=== PATIENT | male | born 1985 | race African-American/Black ===

== ENCOUNTER 2018-09-24 16:18 | Emergency (ER) | payer MEDICAID, OTHER ==
[~2018-09-24] VITALS: Ht 172.7 cm; Wt 136.5 kg
[2018-09-24 17:39] VITALS: BP 212/137
[2018-09-24] MEDS ORDERED: amLODIPine BESYLATE 5 MG TAB PO ONE (17:45)
[2018-09-24] MEDS ORDERED: cloNIDine HCL 0.1 MG TAB PO ONE (18:00)
[2018-09-24 18:26] LABS: Urine Bacteria NONE SEEN /hpf (None Seen); Urine Blood 2+ /uL (Negative); Urine Specific Gravity 1.017 (1.001-1.035); Urine WBC 1 /hpf (0 - 3)
[2018-09-24 18:52] LABS: Basophils # (auto) 0 uL; Basophils % (auto) 0.5 % (0.0-2.0); Eosinophils # (auto) 0.1 uL; Eosinophils % (auto) 0.8 % (0.0-7.0); Hematocrit 46.6 % (41.0-53.0); Hemoglobin 15.4 g/dL (13.5-17.5); Lymphocytes # (auto) 2.5 uL; Lymphocytes % (auto) 23.4 % (10.0-50.0); Mean Corpuscular Hemoglobin 29.3 pg (28.0-32.0); Mean Corpuscular Volume 88.8 fL (80.0-100.0); Monocytes # (auto) 1.1 uL; Monocytes % (auto) 10.3 % (0.0-12.0); Neutrophils # (auto) 6.9 uL; Nucleated Red Blood Cells % 0.1 %; Platelet Count (auto) 282 10^3/uL (140-450); Red Blood Cells 5.25 10^6/uL (4.5-5.90); Red Cell Distribution Width 14.6 % (11.8-14.3); White Blood Cell 10.5 10^3/uL (4.4-10.8)
[2018-09-24 19:02] LABS: Albumin 3.8 g/dL (3.4-5.0); BUN/Creatinine Ratio 8.5; Calcium 8.6 mg/dL (8.5-10.1); Magnesium 2.1 mg/dL (1.6-2.6)
[2018-09-24 19:05] LABS: Amylase 86 U/L (25-115); Lipase 119 U/L (73-393)
[2018-09-24 19:13] LABS: Bilirubin, Total 0.3 mg/dL (0.2-1.0); Total Protein 7.9 g/dL (6.4-8.2)
[2018-09-24 19:18] LABS: Potassium 2.9 mmol/L (3.5-5.1)
[2018-09-24] MEDS ORDERED: POTASSIUM CHL 20 Meq TABLET PO ONE (20:00)
[2018-09-24] MEDS ORDERED: hydrALAZINE HCL 20 MG/ML VL IV ONE (20:30)
[2018-09-24] MEDS ORDERED: TEMAZEPAM 15 MG CAP PO PRN (20:45)
[2018-09-24] MEDS ORDERED: MORPHINE SULF INJ 2 MG/ML SYRINGE 1ML IV PRN (20:45)
[2018-09-24] MEDS ORDERED: ACETAMINOPHEN 325 MG TAB PO PRN (20:45)
[2018-09-24] MEDS ORDERED: ONDANSETRON HCL 4 MG/2 ML VIAL IV PRN (20:45)
[2018-09-24] MEDS ORDERED: ENALAPRILAT 1.25 MG/ML-1ML VIAL IV ONE (20:45)
[2018-09-24] MEDS ORDERED: cloNIDine HCL 0.1 MG TAB PO PRN (20:45)
[2018-09-24] MEDS ORDERED: NITROGLYCERIN 0.4 MG SL TAB SL PRN (20:45)
[2018-09-24] MEDS ORDERED: FAMOTIDINE 20 MG TAB PO SCH (22:00)
[2018-09-25] MEDS ORDERED: LISINOPRIL 10 MG TAB PO SCH (10:00)
== END 2018-09-24 21:27 | disposition home or self-care (01) ==
LOC: ER 16:44
DX: I16.9 Hypertensive crisis, unspecified (principal); I10 Essential (primary) hypertension; E87.6 Hypokalemia; R79.89 Other specified abnormal findings of blood chemistry
CPT/HCPCS: 36415; 74176; 80053; 81001; 82150; 83690; 83735; 84484; 85025; 96374; 96375; 99285; J0360; 93005